=== PATIENT | male | born 1985 ===

== ENCOUNTER 2017-05-07 14:18 | Outpatient (CLI) | payer OTHER ==
--- NOTE | 2017-05-07 14:33 | RAD ---
THREE VIEWS OF THE RIGHT HAND: COMPARISON: None. HISTORY: Right hand pain in the index finger. FINDINGS: Three views of the right hand show no evidence of acute fracture or dislocation. No focal soft tissu e swelling is seen. No degenerative changes are present. IMPRESSION: Unremarkable exam. POS: [facility]
== END 2017-05-07 14:19 | disposition home or self-care (01) ==
LOC: RAD-FRANK 14:18
PROVIDERS: ATTEND Nurse Practitioner Family
DX: M79.644 Pain in right finger(s) (principal)

== ENCOUNTER 2018-01-08 08:36 | Outpatient (CLI) | payer OTHER ==
--- NOTE | 2018-01-08 10:06 | RAD ---
KUB: Date: 01-08-18 Comparison: None. History: Abdominal pain. FINDINGS: The bowel gas pattern appears nonobstructed. Osseous structures are grossly unremarkable. IMPRESSION: No acute findings. POS: [facility]
== END 2018-01-08 08:37 | disposition home or self-care (01) ==
LOC: RAD-FRANK 08:36
PROVIDERS: ATTEND Nurse Practitioner Family
DX: R10.9 Unspecified abdominal pain (principal)
CPT/HCPCS: 74018